=== PATIENT | female | born 1980 | race Caucasian/White ===

== ENCOUNTER 2018-11-06 22:39 | Inpatient (IN) | payer MEDICAID ==
[2018-11-06 23:18] LABS: URINE PH (Dip) POC 7.5 (5.0-8.5)
[2018-11-06 23:18] LABS: URINE BLOOD (Dip) POC Negative (NEGATIVE); URINE GLUCOSE (Dip) POC Negative (NEGATIVE); URINE KETONES (Dip) POC Negative (NEGATIVE); URINE LEUKOCYTE EST (Dip) POC Negative (NEGATIVE); URINE NITRITE (Dip) POC Negative (NEGATIVE); URINE TOTAL PROTEIN POC Negative (NEGATIVE)
[2018-11-07] MEDS: FAMOTIDINE 20 MG TAB PO (00:54)
[2018-11-07] MEDS: morphine 4 MG/ML VIAL IV (00:54)
[2018-11-07] MEDS: ONDANSETRON 4 MG INJ IV (00:54)
[2018-11-07] MEDS: SOD CHLORIDE 0.9% 1,000 ML IV (01:01)
[2018-11-07 01:09] LABS: ADD MAN DIFF? NO
[2018-11-07 01:13] LABS: BASOPHIL # 0.1 10^3/ul (0.0-0.1); BASOPHILS % 0.7 % (0.0-2.0); EOSINOPHILS # 0.3 10^3/ul (0.0-0.5); EOSINOPHILS % 4.2 % (0.0-7.0); HEMOGLOBIN 14.4 g/dl (12.0-16.0); LYMPHOCYTES # 1.5 10^3/ul (0.8-2.9); LYMPHOCYTES % 20.7 % (15.0-51.0); MEAN CORPUSCULAR HEMOGLOBIN 30.8 pg (29.0-33.0); MEAN CORPUSCULAR HGB CONC 32.7 g/dl (32.0-37.0); MEAN PLATELET VOLUME 10.9 fl (7.4-10.4); MONOCYTE # 0.5 10^3/ul (0.3-0.9); NEUTROPHILS % 66.9 % (39.0-77.0); PLATELET COUNT 273 10^3/UL (140-415); RED BLOOD COUNT 4.68 10^6/ul (4.20-5.40); RED CELL DISTRIBUTION WIDTH 12.6 % (11.5-14.5)
[2018-11-07 01:13] LABS: WHITE BLOOD COUNT 7.4 10^3/ul (4.8-10.8)
[2018-11-07 01:17] LABS: ADD UMIC NO; UR ASCORBIC ACID NEGATIVE (NEGATIVE); UR BILIRUBIN (Dip) NEGATIVE (NEGATIVE); UR BLOOD (Dip) NEGATIVE (NEGATIVE); UR CLARITY CLEAR (CLEAR); UR COLOR STRAW (YELLOW); UR GLUCOSE (Dip) NEGATIVE (NEGATIVE); UR KETONES (Dip) NEGATIVE (NEGATIVE); UR LEUKOCYTE ESTERASE (Dip) NEGATIVE Leu/ul (NEGATIVE); UR NITRITE (Dip) NEGATIVE (NEGATIVE); UR SPECIFIC GRAVITY (Dip) 1.005 (1.003-1.030); UR TOTAL PROTEIN (Dip) NEGATIVE (NEGATIVE); UR UROBILINOGEN (Dip) NEGATIVE (NEGATIVE)
[2018-11-07 01:29] LABS: ALANINE AMINOTRANSFERASE 668 IU/L (13-69); ALBUMIN 4.6 g/dl (3.3-4.9); ALBUMIN/GLOBULIN RATIO 1.06; ALKALINE PHOSPHATASE 528 IU/L (42-121); ANION GAP 8 (5-13); ASPARTATE AMINO TRANSFERASE 453 IU/L (15-46); BILIRUBIN,INDIRECT 0.5 mg/dl (0-1.1); BILIRUBIN,TOTAL 0.5 mg/dl (0.2-1.3); BLOOD UREA NITROGEN 12 mg/dl (7-20); CALCIUM 10.2 mg/dl (8.4-10.2); CARBON DIOXIDE 32 mmol/L (21-31); CHLORIDE 102 mmol/L (97-110); CREATININE 0.83 mg/dl (0.44-1.00); Estimated GFR > 60 mL/min (>60); GLUCOSE 110 mg/dl (70-220); LIPASE 118 U/L (23-300); SODIUM 142 mmol/L (135-144); TOTAL PROTEIN 8.9 g/dl (6.1-8.1)
[2018-11-07] MEDS: IOHEXOL 300MG/ML 150 ML BTL (01:56)
[2018-11-07] MEDS: SOD CHLORIDE 0.9% 100 ML (01:57)
[2018-11-07] MEDS: PIPER-TAZO 3.375 GM IV (PMX) 100 ML IVPB ×5 (02:58→22:05)
[2018-11-07] MEDS ORDERED: ONDANSETRON 4 MG INJ IV (04:30)
[2018-11-07] MEDS ORDERED: ACETAMINOPHEN 650 MG SUPP PR (04:30)
[2018-11-07] MEDS ORDERED: NACL 0.9% 3 ML SYG IV (04:30)
[2018-11-07] MEDS: DEXTROSE 5%-0.45% NACL 1,000 ML IV ×3 (05:26→23:34)
[2018-11-08] MEDS: PIPER-TAZO 3.375 GM IV (PMX) 100 ML IVPB ×4 (04:23→22:12)
[2018-11-08] MEDS: DEXTROSE 5%-0.45% NACL 1,000 ML IV ×3 (05:10→22:12)
[2018-11-08 06:05] LABS: ADD MAN DIFF? NO
[2018-11-08 06:08] LABS: BASOPHIL # 0.1 10^3/ul (0.0-0.1); BASOPHILS % 1.1 % (0.0-2.0); EOSINOPHILS # 0.3 10^3/ul (0.0-0.5); EOSINOPHILS % 7.2 % (0.0-7.0); HEMATOCRIT 41.3 % (37.0-47.0); HEMOGLOBIN 13.3 g/dl (12.0-16.0); LYMPHOCYTES # 1.4 10^3/ul (0.8-2.9); LYMPHOCYTES % 30.5 % (15.0-51.0); MEAN CORPUSCULAR HEMOGLOBIN 31.2 pg (29.0-33.0); MEAN CORPUSCULAR HGB CONC 32.2 g/dl (32.0-37.0); MEAN CORPUSCULAR VOLUME 96.9 fl (82.0-101.0); MEAN PLATELET VOLUME 11.1 fl (7.4-10.4); MONOCYTE # 0.3 10^3/ul (0.3-0.9); MONOCYTES % 6.5 % (0.0-11.0); NEUTROPHIL # 2.4 10^3/ul (1.6-7.5); PLATELET COUNT 235 10^3/UL (140-415); RED BLOOD COUNT 4.26 10^6/ul (4.20-5.40); RED CELL DISTRIBUTION WIDTH 13.4 % (11.5-14.5)
[2018-11-08 06:08] LABS: WHITE BLOOD COUNT 4.5 10^3/ul (4.8-10.8)
[2018-11-08 06:43] LABS: ALANINE AMINOTRANSFERASE 646 IU/L (13-69); ALBUMIN 3.8 g/dl (3.3-4.9); ALBUMIN/GLOBULIN RATIO 0.97; ALKALINE PHOSPHATASE 442 IU/L (42-121); ANION GAP 8 (5-13); ASPARTATE AMINO TRANSFERASE 374 IU/L (15-46); BILIRUBIN,INDIRECT 1.4 mg/dl (0-1.1); BILIRUBIN,TOTAL 1.4 mg/dl (0.2-1.3); BLOOD UREA NITROGEN 6 mg/dl (7-20); CALCIUM 8.7 mg/dl (8.4-10.2); CARBON DIOXIDE 25 mmol/L (21-31); CHLORIDE 109 mmol/L (97-110); CHOL/HDL RATIO 3.8 RATIO; CHOLESTEROL 209 mg/dl (100-200); CREATININE 1.03 mg/dl (0.44-1.00); Estimated GFR > 60 mL/min (>60); GLUCOSE 113 mg/dl (70-220); HDL CHOLESTEROL 55 mg/dl (34-82); LDL CHOLESTEROL,CALCULATED 130 mg/dl; MAGNESIUM 2.1 mg/dl (1.7-2.5); PHOSPHORUS 4.1 mg/dl (2.5-4.9); POTASSIUM 4.4 mmol/L (3.5-5.1); SODIUM 142 mmol/L (135-144); TOTAL PROTEIN 7.7 g/dl (6.1-8.1); TRIGLYCERIDES 120 mg/dl (0-149)
[2018-11-08] MEDS ORDERED: INDOMETHACIN 50 MG SUPP PR (16:00)
[2018-11-08] MEDS: morphine 2 MG INJ IV (19:45)
[2018-11-09] MEDS: PIPER-TAZO 3.375 GM IV (PMX) 100 ML IVPB ×4 (04:40→22:10)
[2018-11-09] MEDS: DEXTROSE 5%-0.45% NACL 1,000 ML IV ×5 (05:34→22:30)
[2018-11-09 06:56] LABS: ADD MAN DIFF? NO
[2018-11-09 06:59] LABS: WHITE BLOOD COUNT 4.9 10^3/ul (4.8-10.8)
[2018-11-09 06:59] LABS: BASOPHIL # 0.1 10^3/ul (0.0-0.1); EOSINOPHILS # 0.3 10^3/ul (0.0-0.5); EOSINOPHILS % 6.3 % (0.0-7.0); HEMOGLOBIN 13.5 g/dl (12.0-16.0); LYMPHOCYTES # 1.5 10^3/ul (0.8-2.9); LYMPHOCYTES % 31.3 % (15.0-51.0); MEAN CORPUSCULAR HEMOGLOBIN 31.3 pg (29.0-33.0); MEAN CORPUSCULAR HGB CONC 32.1 g/dl (32.0-37.0); MEAN CORPUSCULAR VOLUME 97.2 fl (82.0-101.0); MEAN PLATELET VOLUME 11.1 fl (7.4-10.4); MONOCYTE # 0.4 10^3/ul (0.3-0.9); NEUTROPHIL # 2.6 10^3/ul (1.6-7.5); NEUTROPHILS % 52.8 % (39.0-77.0); PLATELET COUNT 242 10^3/UL (140-415); RED BLOOD COUNT 4.32 10^6/ul (4.20-5.40); RED CELL DISTRIBUTION WIDTH 13.2 % (11.5-14.5)
[2018-11-09 07:15] LABS: INR 0.98; PROTIME 13.1 Sec (11.9-14.9)
[2018-11-09 07:24] LABS: PHOSPHORUS 4.6 mg/dl (2.5-4.9)
[2018-11-09 07:26] LABS: ALANINE AMINOTRANSFERASE 547 IU/L (13-69); ALBUMIN 3.8 g/dl (3.3-4.9); ALBUMIN/GLOBULIN RATIO 1.08; ALKALINE PHOSPHATASE 448 IU/L (42-121); ANION GAP 6 (5-13); ASPARTATE AMINO TRANSFERASE 254 IU/L (15-46); BILIRUBIN,INDIRECT 1.3 mg/dl (0-1.1); BILIRUBIN,TOTAL 1.3 mg/dl (0.2-1.3); BLOOD UREA NITROGEN 6 mg/dl (7-20); CALCIUM 8.7 mg/dl (8.4-10.2); CARBON DIOXIDE 28 mmol/L (21-31); CHLORIDE 108 mmol/L (97-110); CREATININE 0.95 mg/dl (0.44-1.00); Estimated GFR > 60 mL/min (>60); GLUCOSE 102 mg/dl (70-220); POTASSIUM 3.8 mmol/L (3.5-5.1); SODIUM 142 mmol/L (135-144); TOTAL PROTEIN 7.3 g/dl (6.1-8.1)
[2018-11-09] MEDS ORDERED: ONDANSETRON 4 MG INJ (15:13)
[2018-11-09] MEDS ORDERED: PROPOFOL 20 ML (15:13)
[2018-11-09] MEDS ORDERED: FENTAnyl 50 MCG/ML VIAL (15:13)
[2018-11-09] MEDS ORDERED: MIDAZOLAM 1 MG/ML 2 ML INJ (15:13)
[2018-11-09] MEDS ORDERED: SUCCINYLCHOLINE CHLORIDE 100 MG/5 ML SYG IV (15:13)
[2018-11-09] MEDS ORDERED: METOCLOPRAMIDE 10 MG INJ (15:13)
[2018-11-09] MEDS ORDERED: DESFLURANE 15 MIN (15:15)
[2018-11-09] MEDS ORDERED: MEPERIDINE 25 MG INJ IV (15:30)
[2018-11-09] MEDS ORDERED: DIPHENHYDRAMINE 50 MG INJ IV (15:30)
[2018-11-09] MEDS ORDERED: HYDROmorphONE 1 MG/5 ML IV SYRINGE IV ×3 (15:30)
[2018-11-09] MEDS ORDERED: FENTAnyl 50 MCG/ML VIAL IV ×3 (15:30)
[2018-11-09] MEDS ORDERED: ONDANSETRON 4 MG INJ IV (15:30)
[2018-11-10] MEDS: PIPER-TAZO 3.375 GM IV (PMX) 100 ML IVPB ×2 (04:34→11:52)
[2018-11-10 05:51] LABS: ADD MAN DIFF? NO
[2018-11-10 05:54] LABS: BASOPHIL # 0.1 10^3/ul (0.0-0.1); BASOPHILS % 0.7 % (0.0-2.0); EOSINOPHILS # 0.3 10^3/ul (0.0-0.5); EOSINOPHILS % 4.3 % (0.0-7.0); HEMATOCRIT 41.4 % (37.0-47.0); HEMOGLOBIN 13.5 g/dl (12.0-16.0); LYMPHOCYTES # 1.7 10^3/ul (0.8-2.9); LYMPHOCYTES % 24.1 % (15.0-51.0); MEAN CORPUSCULAR HEMOGLOBIN 31.2 pg (29.0-33.0); MEAN CORPUSCULAR HGB CONC 32.6 g/dl (32.0-37.0); MEAN CORPUSCULAR VOLUME 95.6 fl (82.0-101.0); MEAN PLATELET VOLUME 10.9 fl (7.4-10.4); MONOCYTE # 0.4 10^3/ul (0.3-0.9); MONOCYTES % 5.9 % (0.0-11.0); NEUTROPHIL # 4.4 10^3/ul (1.6-7.5); NEUTROPHILS % 64.4 % (39.0-77.0); PLATELET COUNT 253 10^3/UL (140-415); RED BLOOD COUNT 4.33 10^6/ul (4.20-5.40); RED CELL DISTRIBUTION WIDTH 12.6 % (11.5-14.5)
[2018-11-10 05:54] LABS: WHITE BLOOD COUNT 6.9 10^3/ul (4.8-10.8)
[2018-11-10 06:05] LABS: HEMOGLOBIN A1C 4.8 % (0-5.9)
[2018-11-10 06:13] LABS: MAGNESIUM 2.1 mg/dl (1.7-2.5)
[2018-11-10 06:13] LABS: PHOSPHORUS 5.1 mg/dl (2.5-4.9)
[2018-11-10 06:17] LABS: ALANINE AMINOTRANSFERASE 412 IU/L (13-69); ALBUMIN 3.9 g/dl (3.3-4.9); ALBUMIN/GLOBULIN RATIO 1.08; ALKALINE PHOSPHATASE 413 IU/L (42-121); ANION GAP 9 (5-13); ASPARTATE AMINO TRANSFERASE 141 IU/L (15-46); BLOOD UREA NITROGEN 12 mg/dl (7-20); CALCIUM 9.3 mg/dl (8.4-10.2); CARBON DIOXIDE 27 mmol/L (21-31); CHLORIDE 108 mmol/L (97-110); CREATININE 1.02 mg/dl (0.44-1.00); Estimated GFR > 60 mL/min (>60); GLUCOSE 88 mg/dl (70-220); POTASSIUM 4.2 mmol/L (3.5-5.1); SODIUM 144 mmol/L (135-144); TOTAL PROTEIN 7.5 g/dl (6.1-8.1)
[2018-11-10] MEDS: DEXTROSE 5%-0.45% NACL 1,000 ML IV ×2 (11:52→20:30)
[2018-11-10] MEDS ORDERED: BUPIVACAINE 0.5%/EPI (SDV) 30 ML INJ (19:12)
[2018-11-10] MEDS ORDERED: BUPIVACAINE 0.25%/EPI (SDV) 30 ML INJ (19:14)
[2018-11-10] MEDS: BUPIVACAINE 0.25%/EPI (SDV) 30 ML INJ INJ (19:32)
[2018-11-10] MEDS ORDERED: PROPOFOL 20 ML (19:49)
[2018-11-10] MEDS ORDERED: ROCURONIUM 50 MG INJ (19:49)
[2018-11-10] MEDS ORDERED: LIDOCAINE 2% (SDV) 5 ML INJ (19:49)
[2018-11-10] MEDS ORDERED: ROPIVACAINE 0.5 % 30 ML VIAL (19:50)
[2018-11-10] MEDS ORDERED: MIDAZOLAM 1 MG/ML 2 ML INJ (19:50)
[2018-11-10] MEDS ORDERED: HYDROmorphONE 1 MG/5 ML IV SYRINGE IV ×3 (20:00)
[2018-11-10] MEDS ORDERED: ONDANSETRON 4 MG INJ IV ×2 (20:00→21:30)
[2018-11-10] MEDS ORDERED: DEXAMETHASONE 4 MG/ML 5 ML INJ (20:19)
[2018-11-10] MEDS ORDERED: ONDANSETRON 4 MG INJ (20:19)
[2018-11-10] MEDS ORDERED: CEFAZOLIN 1 GM INJ (20:19)
[2018-11-10] MEDS ORDERED: SUGAMMADEX SODIUM 200 MG/2 ML VIAL IV (21:06)
[2018-11-10] MEDS ORDERED: SCOPOLAMINE 1.5 MG PATCH (21:06)
[2018-11-10] MEDS ORDERED: morphine 2 MG INJ IV (21:30)
[2018-11-10] MEDS ORDERED: METOCLOPRAMIDE 10 MG INJ IV (21:30)
[2018-11-10] MEDS ORDERED: DIPHENHYDRAMINE 50 MG INJ IV (21:30)
[2018-11-10] MEDS ORDERED: HYDROCODONE/APAP (5/325) TAB PO (21:30)
[2018-11-10] MEDS: LACTATED RINGER'S 1,000 ML IV (22:14)
[2018-11-10] MEDS: morphine 2 MG INJ IV (23:17)
[2018-11-11] MEDS: LACTATED RINGER'S 1,000 ML IV (03:26)
[2018-11-11 05:44] LABS: ADD MAN DIFF? NO
[2018-11-11 05:45] LABS: ABNORMAL IP MESSAGE 1; BASOPHILS % 0.1 % (0.0-2.0); HEMATOCRIT 39.8 % (37.0-47.0); HEMOGLOBIN 13.1 g/dl (12.0-16.0); LYMPHOCYTES # 0.4 10^3/ul (0.8-2.9); LYMPHOCYTES % 5.2 % (15.0-51.0); MEAN CORPUSCULAR HEMOGLOBIN 31.4 pg (29.0-33.0); MEAN CORPUSCULAR HGB CONC 32.9 g/dl (32.0-37.0); MEAN CORPUSCULAR VOLUME 95.4 fl (82.0-101.0); MEAN PLATELET VOLUME 10.7 fl (7.4-10.4); MONOCYTE # 0.1 10^3/ul (0.3-0.9); MONOCYTES % 0.8 % (0.0-11.0); NEUTROPHIL # 6.8 10^3/ul (1.6-7.5); NEUTROPHILS % 93.5 % (39.0-77.0); PLATELET COUNT 259 10^3/UL (140-415); RED BLOOD COUNT 4.17 10^6/ul (4.20-5.40); RED CELL DISTRIBUTION WIDTH 12.3 % (11.5-14.5)
[2018-11-11 05:45] LABS: WHITE BLOOD COUNT 7.3 10^3/ul (4.8-10.8)
[2018-11-11 06:01] LABS: POSITIVE DIFF @See below
[2018-11-11 06:04] LABS: ALANINE AMINOTRANSFERASE 341 IU/L (13-69); ALBUMIN 4.1 g/dl (3.3-4.9); ALBUMIN/GLOBULIN RATIO 1.17; ALKALINE PHOSPHATASE 356 IU/L (42-121); ANION GAP 11 (5-13); ASPARTATE AMINO TRANSFERASE 99 IU/L (15-46); BILIRUBIN,INDIRECT 0.8 mg/dl (0-1.1); BILIRUBIN,TOTAL 0.8 mg/dl (0.2-1.3); BLOOD UREA NITROGEN 8 mg/dl (7-20); CALCIUM 9.3 mg/dl (8.4-10.2); CARBON DIOXIDE 25 mmol/L (21-31); CHLORIDE 106 mmol/L (97-110); Estimated GFR > 60 mL/min (>60); GLUCOSE 146 mg/dl (70-220); POTASSIUM 4.1 mmol/L (3.5-5.1); SODIUM 142 mmol/L (135-144); TOTAL PROTEIN 7.6 g/dl (6.1-8.1)
[2018-11-11 06:07] LABS: MAGNESIUM 1.7 mg/dl (1.7-2.5)
[2018-11-11] MEDS: DEXTROSE 5%-0.45% NACL 1,000 ML IV (06:30)
== END 2018-11-11 17:20 | disposition home or self-care (01) | DRG 419 ==
LOC: 2NE 11-07 03:42 → FTE 22:39 → 2NE 11-07 02:44
PROC: 0FT44ZZ Resection of Gallbladder, Percutaneous Endoscopic Approach (ICD-10-PCS; principal; 2018-11-09 14:55)
PROC: 0FC98ZZ Extirpation of Matter from Common Bile Duct, Via Natural or Artificial Opening Endoscopic (ICD-10-PCS; 2018-11-09 14:55)
DX: K80.62 Calculus of gallbladder and bile duct with acute cholecystitis without obstruction (principal); Z68.36 Body mass index [BMI] 36.0-36.9, adult; E66.01 Morbid (severe) obesity due to excess calories; E78.5 Hyperlipidemia, unspecified; E66.9 Obesity, unspecified
CPT/HCPCS: 74177; 74181; 74330; 76700; 80053; 80061; 81003; 81025; 83036; 83690; 83735; 84100; 84703; 85025; 85610; 88304; 93970

== ENCOUNTER 2018-11-18 12:42 | Emergency (ER) | payer MEDICAID | END 2018-11-18 13:15 | disposition home or self-care (01) | LOC: E/R 12:42 | DX: Z48.01 Encounter for change or removal of surgical wound dressing (principal) | CPT/HCPCS: 99281; Z7502 ==